=== PATIENT | female | born 1975 | race Caucasian/White ===

== ENCOUNTER 2017-12-14 19:56 | Emergency (ER) | payer BC, MEDICAID ==
[2017-12-14] MEDS: ONDANSETRON 4 MG INJ IV (22:54)
[2017-12-14] MEDS: SOD CHLORIDE 0.9% 1,000 ML IV (22:54)
[2017-12-14] MEDS: morphine 4 MG/ML VIAL IV (22:54)
[2017-12-14 23:02] LABS: URINE BLOOD (Dip) POC Trace-intact (NEGATIVE); URINE GLUCOSE (Dip) POC Negative (NEGATIVE); URINE KETONES (Dip) POC Negative (NEGATIVE); URINE LEUKOCYTE EST (Dip) POC Trace (NEGATIVE); URINE NITRITE (Dip) POC Negative (NEGATIVE); URINE TOTAL PROTEIN POC Negative (NEGATIVE)
[2017-12-14 23:27] LABS: ADD MAN DIFF? NO
[2017-12-14 23:30] LABS: WHITE BLOOD COUNT 9.4 10^3/ul (4.8-10.8)
[2017-12-14 23:30] LABS: BASOPHIL # 0.1 10^3/ul (0.0-0.1); BASOPHILS % 0.5 % (0.0-2.0); EOSINOPHILS # 0.2 10^3/ul (0.0-0.5); EOSINOPHILS % 1.8 % (0.0-7.0); HEMATOCRIT 40.2 % (37.0-47.0); LYMPHOCYTES # 3.5 10^3/ul (0.8-2.9); MEAN CORPUSCULAR HEMOGLOBIN 28.3 pg (29.0-33.0); MEAN CORPUSCULAR HGB CONC 32.3 g/dl (32.0-37.0); MEAN CORPUSCULAR VOLUME 87.4 fl (82.0-101.0); MEAN PLATELET VOLUME 9.6 fl (7.4-10.4); MONOCYTE # 0.8 10^3/ul (0.3-0.9); NEUTROPHIL # 4.8 10^3/ul (1.6-7.5); NEUTROPHILS % 51.5 % (39.0-77.0); PLATELET COUNT 261 10^3/UL (140-415); RED CELL DISTRIBUTION WIDTH 13.1 % (11.5-14.5)
[2017-12-14] MEDS: KETOROLAC 30 MG INJ IV (23:45)
[2017-12-14 23:50] LABS: ALANINE AMINOTRANSFERASE 22 IU/L (13-69); ALBUMIN 4.3 g/dl (3.3-4.9); ALKALINE PHOSPHATASE 60 IU/L (42-121); ANION GAP 12 (8-16); ASPARTATE AMINO TRANSFERASE 20 IU/L (15-46); BILIRUBIN,INDIRECT 0.1 mg/dl (0-1.1); BILIRUBIN,TOTAL 0.1 mg/dl (0.2-1.3); BLOOD UREA NITROGEN 14 mg/dl (7-20); CALCIUM 9.6 mg/dl (8.4-10.2); CARBON DIOXIDE 24 mmol/L (21-31); CHLORIDE 108 mmol/L (97-110); CREATININE 0.65 mg/dl (0.44-1.00); GLUCOSE 94 mg/dl (70-220); LIPASE 153 U/L (23-300); POTASSIUM 4.4 mmol/L (3.5-5.1); SODIUM 140 mmol/L (135-144); TOTAL PROTEIN 8.2 g/dl (6.1-8.1)
[2017-12-15 00:05] LABS: ADD UMIC NO; UR ASCORBIC ACID NEGATIVE (NEGATIVE); UR BILIRUBIN (Dip) NEGATIVE (NEGATIVE); UR BLOOD (Dip) NEGATIVE (NEGATIVE); UR CLARITY CLEAR (CLEAR); UR COLOR YELLOW (YELLOW); UR GLUCOSE (Dip) NEGATIVE (NEGATIVE); UR KETONES (Dip) NEGATIVE (NEGATIVE); UR LEUKOCYTE ESTERASE (Dip) NEGATIVE Leu/ul (NEGATIVE); UR NITRITE (Dip) NEGATIVE (NEGATIVE); UR SPECIFIC GRAVITY (Dip) 1.015 (1.003-1.030); UR TOTAL PROTEIN (Dip) NEGATIVE (NEGATIVE); UR UROBILINOGEN (Dip) NEGATIVE (NEGATIVE)
[2017-12-15] MEDS: KETOROLAC 30 MG INJ IV (01:01)
== END 2017-12-15 03:17 | disposition home or self-care (01) ==
LOC: E/R 12-15 03:17
DX: K80.20 Calculus of gallbladder without cholecystitis without obstruction (principal); M79.1 Myalgia
CPT/HCPCS: 36415; 71100; 76705; 80053; 81003; 83690; 85025; 96374; 96375; 99285-25

== ENCOUNTER 2018-03-16 06:38 | Day surgery (SDC) | payer BC ==
[2018-03-16] MEDS ORDERED: SOD CHLORIDE 0.9% 1,000 ML IV (07:00)
[2018-03-16] MEDS ORDERED: MIDAZOLAM 1 MG/ML 2 ML INJ (08:55)
[2018-03-16] MEDS: CEFAZOLIN 2 GM/50 ML (PMX) 50 ML IVPB (08:56)
[2018-03-16] MEDS: BUPIVACAINE 0.25% (MPF) 30 ML INJ (09:23)
[2018-03-16] MEDS ORDERED: ROCURONIUM 50 MG INJ (09:48)
[2018-03-16] MEDS ORDERED: CEFAZOLIN 1 GM INJ (09:48)
[2018-03-16] MEDS ORDERED: NEOSTIGMINE 3 MG/3 ML SYRINGE (09:48)
[2018-03-16] MEDS ORDERED: PROPOFOL 20 ML (09:48)
[2018-03-16] MEDS ORDERED: GLYCOPYRROLATE 0.4 MG INJ (09:48)
[2018-03-16] MEDS ORDERED: ONDANSETRON 4 MG INJ (09:48)
[2018-03-16] MEDS ORDERED: LIDOCAINE 2% (SDV) 5 ML INJ (09:48)
[2018-03-16] MEDS ORDERED: FENTAnyl 50 MCG/ML VIAL IV (10:00)
[2018-03-16] MEDS ORDERED: DIPHENHYDRAMINE 50 MG INJ IV (10:00)
[2018-03-16] MEDS ORDERED: MEPERIDINE 25 MG INJ IV (10:00)
[2018-03-16] MEDS ORDERED: HYDROCODONE/APAP (5/325) TAB PO (10:00)
[2018-03-16] MEDS ORDERED: HYDROmorphONE (0.2 MG/ML) 10ML SYG IV (10:00)
[2018-03-16] MEDS: ONDANSETRON 4 MG INJ IV ×2 (10:22→11:15)
[2018-03-16] MEDS: KETOROLAC 30 MG INJ IV (10:22)
[2018-03-16] MEDS: HYDROmorphONE (0.2 MG/ML) 10ML SYG IV ×2 (10:22→10:35)
[2018-03-16] MEDS: METOCLOPRAMIDE 10 MG INJ IV (10:24)
[2018-03-16] MEDS: TRIMETHOBENZAMIDE 100 MG/ML VIAL IM (11:03)
== END 2018-03-16 11:30 | disposition home or self-care (01) ==
LOC: SDS 06:38
DX: K80.10 Calculus of gallbladder with chronic cholecystitis without obstruction (principal)
CPT/HCPCS: 47562; 84703; 88304